=== PATIENT | female | born 1950 | race Hispanic/Latino ===

== ENCOUNTER → 2018-06-27 | Outpatient (CLI) | payer OTHER ==
[~2018-06-27] MED LIST: ALBUTEROL SULFATE 0.083% 2.5 MG/3 ML INH IH ONE; ATOR10TA69 PO; CERT400S SQ; PIND10TA2 PO; SULF500T8; VALS80TA30 PO
== END | disposition home or self-care (01) ==
LOC: RESP 10:14
PROVIDERS: ATTEND Internal Medicine Cardiovascular Disease
DX: R06.00 Dyspnea, unspecified (principal); J45.909 Unspecified asthma, uncomplicated; R06.02 Shortness of breath
CPT/HCPCS: 94060; 94727; 94729

== ENCOUNTER → 2018-07-23 | Outpatient (CLI) | payer OTHER ==
[~2018-07-23] MED LIST changes: -ALBUTEROL SULFATE 0.083% 2.5 MG/3 ML INH IH ONE; +IOHEXOL 350 MG/ML 100ML INFUS..BTL IV ONE
== END | disposition home or self-care (01) ==
LOC: RAH 09:37
PROVIDERS: ATTEND Internal Medicine Gastroenterology
DX: K57.30 Diverticulosis of large intestine without perforation or abscess without bleeding (principal); N20.0 Calculus of kidney; M51.36 Other intervertebral disc degeneration, lumbar region; Z90.49 Acquired absence of other specified parts of digestive tract; Z90.710 Acquired absence of both cervix and uterus
CPT/HCPCS: 74178; Q9967

== ENCOUNTER → 2018-08-13 | Outpatient (CLI) | payer OTHER ==
[~2018-08-13] MED LIST changes: -IOHEXOL 350 MG/ML 100ML INFUS..BTL IV ONE; +IOHEXOL-350 75 ML VIAL IV ONE
== END | disposition home or self-care (01) ==
LOC: RAH 07:48
PROVIDERS: ATTEND Internal Medicine Cardiovascular Disease
DX: I51.7 Cardiomegaly (principal); I95.1 Orthostatic hypotension; R91.8 Other nonspecific abnormal finding of lung field; Z90.49 Acquired absence of other specified parts of digestive tract
CPT/HCPCS: 71275; Q9967

== ENCOUNTER → 2021-01-07 | Outpatient (CLI) | payer MEDICARE ==
[~2021-01-07] VITALS: Ht 172.7 cm; Wt 112.5 kg
[~2021-01-07] MED LIST changes: -IOHEXOL-350 75 ML VIAL IV ONE
[2021-01-07] MEDS: REGADENOSON 0.4 MG/5 ML PF SYG IVP SCH (09:30)
== END | disposition home or self-care (01) ==
LOC: SHCH 08:43
PROVIDERS: ATTEND Internal Medicine Cardiovascular Disease
DX: R06.02 Shortness of breath (principal); R06.00 Dyspnea, unspecified; I95.1 Orthostatic hypotension; I10 Essential (primary) hypertension
CPT/HCPCS: 78452; 93017; 96374; A9500 ×2; J2785

== ENCOUNTER 2021-12-07 07:56 | Observation (INO) | payer MEDICARE ==
[2021-12-01 11:57] LABS: BASOPHILS % (AUTO) 1.2 % (0.0-5.0); EOSINOPHILS % (AUTO) 4.7 % (0.0-8.0); HEMATOCRIT 41.1 % (36-48); LYMPHOCYTES % (AUTO) 28.9 % (21.0-51.0); MEAN CORPUSCULAR HEMOGLOBIN 28.6 pg (27.0-33.0); MEAN CORPUSCULAR HGB CONC 31.6 g/dL (32.0-36.0); MEAN CORPUSCULAR VOLUME 90.5 fL (79-99); MONOCYTES % (AUTO) 7.4 % (3.0-13.0); NEUTROPHILS % (AUTO) 57.4 % (40.0-77.0); PLATELET COUNT (AUTO) 215 K/uL (130-400); RED BLOOD CELL COUNT(AUTO) 4.54 MIL/uL (4.00-5.50); RED CELL DISTRIBUTION WIDTH 13.9 % (11.0-15.5); WHITE BLOOD COUNT (AUTO) 8.4 K/uL (4.8-10.8)
[2021-12-01 12:08] LABS: INR 0.97 (0.85-1.15); PROTHROMBIN TIME 10.6 SEC (9.6-11.6)
[2021-12-01 12:09] LABS: PARTIAL THROMBOPLASTIN TIME 27.1 SEC (26.3-35.5)
[2021-12-01 12:24] LABS: CREATININE 1.1 mg/dL (0.5-1.5); POTASSIUM 4.4 mmol/L (3.5-5.1)
[2021-12-06 14:07] VITALS: BP 158/74
[~2021-12-07] VITALS: Ht 170.2 cm; Wt 111.7 kg
[2021-12-07] VITALS (24 sets, daily range): BP systolic 104–157; BP diastolic 59–86
[~2021-12-07 07:56] MED LIST changes: +ALBU18HF7 IH; +BUDE10.2 IH; -CERT400S SQ; +CYCL5TAB PO; +DEXL30CA3 PO; +FURO20TA4 PO; +LOSA100T58 PO; +MELO-108 PO; +MULT-1367 PO; +NAPR-1023 PO; +NITR0.4T50 SL; +OMEG-148 PO; +ROPI1TAB13 PO; +ROPIVICAINE 250MG+KETOROLAC 15MG+EPINEPHRINE 0.3+CLONIDINE 80 IV PRN; -SULF500T8; +SULF500T8 PO; +TRAM50TA4 PO; -VALS80TA30 PO
[2021-12-07] MEDS ORDERED: CEFAZOLIN SODIUM 1 GM VIAL ONE (08:43)
[2021-12-07] MEDS ORDERED: LACTATED RINGERS 1000ML 1,000 ML IV ONE (08:45)
[2021-12-07] MEDS: CEFAZOLIN SODIUM 2 GM VIAL IV SCH (08:55)
[2021-12-07] MEDS ORDERED: SUCCINYLCHOLINE 200MG/10ML SYR ONE (10:42)
[2021-12-07] MEDS ORDERED: ONDANSETRON 4MG INJ ONE (10:42)
[2021-12-07] MEDS ORDERED: SUCCINYLCHOLINE CHLORIDE 20 MG/ML 10 ML VIAL ONE (10:42)
[2021-12-07] MEDS ORDERED: ROCURONIUM 10MG/1ML SYR 10 MG/ML ML ONE ×2 (10:43→12:28)
[2021-12-07] MEDS ORDERED: PROPOFOL 10 MG/ML 20ML VIAL IV ONE (10:43)
[2021-12-07] MEDS ORDERED: FENTANYL CITRATE PF 50 MCG/1 ML 2ML VIAL ONE (10:43)
[2021-12-07] MEDS ORDERED: NEOSTIGMINE 5MG/5ML SYR IV ONE (10:43)
[2021-12-07] MEDS ORDERED: DEXAMETHASONE SOD PHOSPHATE 10MG/ML 1ML VIAL ONE (10:43)
[2021-12-07] MEDS ORDERED: GLYCOPYRROLATE 1 MG/5 ML SYRINGE ONE (10:43)
[2021-12-07] MEDS ORDERED: KETOROLAC 15MG/ML VIAL (15MG/ML) ONE (11:01)
[2021-12-07] MEDS ORDERED: SCOPOLAMINE HYDROBROMIDE 1 EACH ADH..PATCH TD ONE (11:02)
[2021-12-07] MEDS ORDERED: CEFAZOLIN SODIUM 2 GM VIAL IV ONE (11:45)
[2021-12-07] MEDS ORDERED: HYDROCODONE/ACETAMINOPHEN 10/325 MG TAB PO PRN (12:00)
[2021-12-07] MEDS: 0.9%NACL 1000ML 1,000 ML IV SCH ×2 (12:00→22:00)
[2021-12-07] MEDS ORDERED: ONDANSETRON 4MG INJ IVP PRN (12:00)
[2021-12-07] MEDS ORDERED: ACETAMINOPHEN 500 MG TABLET PO SCH (12:00)
[2021-12-07] MEDS ORDERED: KCL 20 MEQ ERTAB PO PRN (12:00)
[2021-12-07] MEDS: TRAMADOL HCL 50 MG TABLET PO SCH ×2 (12:00→18:32)
[2021-12-07] MEDS ORDERED: LIDOCAINE HCL-MPF 1% 2ML VIAL IV PRN (12:00)
[2021-12-07] MEDS ORDERED: POTASSIUM CHLORIDE 10% ELIXIR 20 MEQ/15 ML UDCUP PO PRN (12:00)
[2021-12-07] MEDS ORDERED: POTASSIUM CHLORIDE 20MEQ/100ML 100 ML IV PRN (12:00)
[2021-12-07] MEDS ORDERED: NITROGLYCERIN 0.4 MG SL TAB SL PRN (12:00)
[2021-12-07] MEDS ORDERED: HYDROCODONE/ACETAMINOPHEN 5/325 MG TAB PO PRN (12:00)
[2021-12-07] MEDS ORDERED: ALBUTEROL INHALER 90MCG/INH IH PRN (12:00)
[2021-12-07] MEDS ORDERED: TRANEXAMIC ACID 1000MG/10ML ONE (13:12)
[2021-12-07] MEDS ORDERED: MEPERIDINE-PF 25 MG/ML SYG ONE ×2 (14:01→14:49)
[2021-12-07] MEDS: CEFAZOLIN SODIUM 1 GM VIAL IVP SCH (18:32)
[2021-12-07] MEDS: BUDESONIDE 0.5 MG/2 ML INH IH SCH (18:55)
[2021-12-07] MEDS: ALBUTEROL 0.083% 2.5 MG/3 ML INH IH SCH ×2 (18:55→23:33)
[2021-12-07] MEDS: SULFASALAZINE 500 MG TAB.DR PO SCH (20:13)
[2021-12-07] MEDS: CYCLOBENZAPRINE HCL 10 MG TABLET PO SCH (20:13)
[2021-12-07] MEDS: ROPINIROLE HCL 1 MG TABLET PO SCH (20:14)
[2021-12-07] MEDS: NAPROXEN 500 MG TABLET PO SCH (20:14)
[2021-12-07] MEDS: FAMOTIDINE 20MG TAB PO SCH (20:14)
[2021-12-07] MEDS: PINDOLOL 5 MG TAB PO SCH (20:17)
[2021-12-07] MEDS: ACETAMINOPHEN 500 MG TABLET PO SCH (22:44)
[2021-12-08] VITALS: BP 109/48
[2021-12-08] MEDS: MORPHINE 4 MG SYG IVP PRN ×2 (00:50→00:51)
[2021-12-08] MEDS ORDERED: CEFAZOLIN SODIUM 1 GM VIAL ONE (02:08)
[2021-12-08] MEDS: CEFAZOLIN SODIUM 1 GM VIAL IVP SCH (02:09)
[2021-12-08 03:54] LABS: MEAN CORPUSCULAR HEMOGLOBIN 28.4 pg (27.0-33.0); MEAN CORPUSCULAR HGB CONC 31.6 g/dL (32.0-36.0); MEAN CORPUSCULAR VOLUME 89.9 fL (79-99); RED BLOOD CELL COUNT(AUTO) 3.45 MIL/uL (4.00-5.50); RED CELL DISTRIBUTION WIDTH 13.7 % (11.0-15.5); WHITE BLOOD COUNT (AUTO) 11.5 K/uL (4.8-10.8)
[2021-12-08 04:00] VITALS: BP 116/53
[2021-12-08 04:06] LABS: POTASSIUM 4.3 mmol/L (3.5-5.1)
[2021-12-08] MEDS: 0.9%NACL 1000ML 1,000 ML IV SCH ×2 (04:17→05:40)
[2021-12-08] MEDS: CEFAZOLIN SODIUM 2 GM VIAL IV SCH (05:00)
[2021-12-08] MEDS: ACETAMINOPHEN 500 MG TABLET PO SCH ×3 (05:31→22:48)
[2021-12-08] MEDS: TRAMADOL HCL 50 MG TABLET PO SCH ×4 (06:38→18:34)
[2021-12-08] MEDS: BUDESONIDE 0.5 MG/2 ML INH IH SCH ×2 (06:52→19:13)
[2021-12-08] MEDS: ALBUTEROL 0.083% 2.5 MG/3 ML INH IH SCH ×4 (06:52→23:52)
[2021-12-08 07:59] VITALS: BP 98/59
[2021-12-08] MEDS: POLYETHYLENE GLYCOL 3350 17 GM POWD.PACK PO SCH (08:26)
[2021-12-08] MEDS: MULTIVITAMIN TABLET PO SCH (08:28)
[2021-12-08] MEDS: FAMOTIDINE 20MG TAB PO SCH ×2 (08:28→21:04)
[2021-12-08] MEDS: ENOXAPARIN SODIUM 30 MG/0.3 ML SQ SCH (08:28)
[2021-12-08] MEDS: PINDOLOL 5 MG TAB PO SCH ×2 (08:29→21:04)
[2021-12-08] MEDS: LOSARTAN 100 MG TABLET PO SCH (08:30)
[2021-12-08] MEDS: FUROSEMIDE 20 MG TABLET PO SCH (08:30)
[2021-12-08] MEDS: DEXILANT 30 MG PO SCH (08:30)
[2021-12-08 11:22] VITALS: BP 104/48
[2021-12-08] MEDS: SULFASALAZINE 500 MG TAB.DR PO SCH ×2 (14:27→21:03)
[2021-12-08] MEDS: NAPROXEN 500 MG TABLET PO SCH ×2 (14:27→21:03)
[2021-12-08 16:09] VITALS: BP 122/52
[2021-12-08] MEDS: FERROUS GLUCONATE TABLET PO SCH (18:34)
[2021-12-08 20:00] VITALS: BP 108/49
[2021-12-08] MEDS: CYCLOBENZAPRINE HCL 10 MG TABLET PO SCH (21:03)
[2021-12-08] MEDS: ROPINIROLE HCL 1 MG TABLET PO SCH (21:04)
[2021-12-09] VITALS: BP 121/53
[2021-12-09] MEDS: MORPHINE 4 MG SYG IVP PRN (00:32)
[2021-12-09 04:00] VITALS: BP 138/56
[2021-12-09] MEDS: CEFAZOLIN SODIUM 2 GM VIAL IV SCH (05:00)
[2021-12-09] MEDS: TRAMADOL HCL 50 MG TABLET PO SCH ×3 (05:46→12:25)
[2021-12-09] MEDS: ACETAMINOPHEN 500 MG TABLET PO SCH (05:57)
[2021-12-09] MEDS: BUDESONIDE 0.5 MG/2 ML INH IH SCH (06:12)
[2021-12-09] MEDS: ALBUTEROL 0.083% 2.5 MG/3 ML INH IH SCH ×2 (06:13→11:18)
[2021-12-09 08:03] VITALS: BP 133/59
[2021-12-09] MEDS: POLYETHYLENE GLYCOL 3350 17 GM POWD.PACK PO SCH (08:11)
[2021-12-09] MEDS: MULTIVITAMIN TABLET PO SCH (08:12)
[2021-12-09] MEDS: FAMOTIDINE 20MG TAB PO SCH (08:12)
[2021-12-09] MEDS: LOSARTAN 100 MG TABLET PO SCH (08:12)
[2021-12-09] MEDS: FERROUS GLUCONATE TABLET PO SCH (08:12)
[2021-12-09] MEDS: ENOXAPARIN SODIUM 30 MG/0.3 ML SQ SCH (08:13)
[2021-12-09] MEDS: FUROSEMIDE 20 MG TABLET PO SCH (09:00)
[2021-12-09] MEDS: PINDOLOL 5 MG TAB PO SCH (09:00)
[2021-12-09] MEDS: DEXILANT 30 MG PO SCH (09:00)
[2021-12-09 10:56] VITALS: BP 140/56
[2021-12-09] MEDS: SULFASALAZINE 500 MG TAB.DR PO SCH (12:24)
[2021-12-09] MEDS: NAPROXEN 500 MG TABLET PO SCH (12:24)
[2021-12-09 15:39] VITALS: BP 142/58
[2021-12-10] MEDS ORDERED: BISACODYL 10 MG SUPP.RECT RC PRN (12:00)
== END 2021-12-09 16:52 | disposition home or self-care (01) ==
LOC: DAH 07:56 → DAHIP 07:57 → 4BH 15:32
PROVIDERS: ADMIT Orthopaedic Surgery; ATTEND Orthopaedic Surgery
DX: M16.12 Unilateral primary osteoarthritis, left hip (principal); Z20.822 Contact with and (suspected) exposure to COVID-19; I10 Essential (primary) hypertension; E66.9 Obesity, unspecified; M21.70 Unequal limb length (acquired), unspecified site; Z96.641 Presence of right artificial hip joint; Z79.899 Other long term (current) drug therapy; Z98.890 Other specified postprocedural states; Z68.38 Body mass index [BMI] 38.0-38.9, adult
CPT/HCPCS: 80048 ×2; 85025; 85610; 85730; 36415 ×2; 87635; 72170; 93005; 87641; 27130; 96374; 73503; 94640 ×9; 94664; 96376 ×2; 96372 ×2; 96375; 85027; 97161; 97039 ×4; 97116 ×4; 97530 ×3; C9803; A6260; G0378 ×45; A4663; A4606; A4649 ×4; J0690 ×4; J7120; J3010; J3490 ×2; J0330 ×2; J1100; J2710; J0171; J2704; J2405 ×2; J2175 ×2; J2795; J1885 ×2; J0735; G0168; C1776; A6255; A5120; A4215; A4223 ×2; A4213; A4222; A4221; A4216; J1650 ×3; J2270 ×2

== ENCOUNTER → 2022-03-21 | Outpatient (CLI) | payer MEDICARE ==
[~2022-03-21] MED LIST changes: -MELO-108 PO; -OMEG-148 PO; -ROPIVICAINE 250MG+KETOROLAC 15MG+EPINEPHRINE 0.3+CLONIDINE 80 IV PRN; -SULF500T8 PO
== END | disposition home or self-care (01) ==
LOC: RAH 14:25
PROVIDERS: ATTEND Internal Medicine Nephrology
DX: N20.0 Calculus of kidney (principal); R10.9 Unspecified abdominal pain
CPT/HCPCS: 74176

== ENCOUNTER 2023-09-05 08:30 | Observation (INO) | payer MEDICARE ==
[2023-08-30 12:14] LABS: BASOPHILS # (AUTO) 0.07 K/uL (0.00-0.20); BASOPHILS % (AUTO) 0.8 % (0.0-5.0); EOSINOPHILS # (AUTO) 0.25 K/uL (0.00-0.70); HEMATOCRIT 44.9 % (36-48); IMMATURE GRANULOCYTE ABSOLUTE 0.03 K/uL (0-1); LYMPHOCYTES # (AUTO) 2.4 K/uL (1.0-4.8); LYMPHOCYTES % (AUTO) 28.7 % (21.0-51.0); MEAN CORPUSCULAR HEMOGLOBIN 29.5 pg (27.0-33.0); MEAN CORPUSCULAR HGB CONC 32.1 g/dL (32.0-36.0); MONOCYTES # (AUTO) 0.6 K/uL (0.1-1.0); MONOCYTES % (AUTO) 7.6 % (3.0-13.0); NEUTROPHILS % (AUTO) 59.5 % (40.0-77.0); PLATELET COUNT (AUTO) 197 K/uL (130-400); RED BLOOD CELL COUNT(AUTO) 4.88 MIL/uL (4.00-5.50); RED CELL DISTRIBUTION WIDTH 14.1 % (11.0-15.5); WHITE BLOOD COUNT (AUTO) 8.4 K/uL (4.8-10.8)
[2023-08-30 12:29] LABS: INR <= 0.93 (0.85-1.15)
[2023-08-30 12:31] LABS: CREATININE 0.9 mg/dL (0.5-1.0); PARTIAL THROMBOPLASTIN TIME 29.1 SEC (26.3-35.5); POTASSIUM 4.4 mmol/L (3.5-5.1)
[2023-08-30 12:35] VITALS: BP 161/87; PULSE 71; RESP 16
[~2023-09-05] VITALS: Ht 172.7 cm; Wt 108.4 kg
[2023-09-05] VITALS (24 sets, daily range): BP systolic 109–142; BP diastolic 55–84; PULSE 66–96; RESP 15–20
[~2023-09-05 08:30] MED LIST changes: -ALBU18HF7 IH; -ATOR10TA69 PO; +ATOR40TA71 PO; -BUDE10.2 IH; +BUDE10.7 IH; -CYCL5TAB PO; -DEXL30CA3 PO; +DEXL30CA4 PO; +EMPA25TA PO; +ERGO500093 PO; +FAMO40TA7 PO; +FERR-72 PO; +FOLI1TAB85 PO; -LOSA100T58 PO; +LOSA100T59 PO; -MULT-1367 PO; -NAPR-1023 PO; +POTA15TA11 PO; -ROPI1TAB13 PO; +SECU150P2 SQ; +SULF500T8 PO
[2023-09-05] MEDS ORDERED: LIDOCAINE PF 100MG/5ML (2%) SYRINGE 5ML ONE (12:55)
[2023-09-05] MEDS: LACTATED RINGERS 1000ML 1,000 ML IV ONE (12:55)
[2023-09-05] MEDS ORDERED: ROCURONIUM BROMIDE 10MG/1ML 5ML VL ONE (12:56)
[2023-09-05] MEDS ORDERED: SUCCINYLCHOLINE CHLORIDE 20 MG/ML 10 ML VIAL ONE (12:56)
[2023-09-05] MEDS ORDERED: NEOSTIGMINE METHYLSULFATE 1MG/ML IV ONE (12:56)
[2023-09-05] MEDS ORDERED: GLYCOPYRROLATE 0.2 MG/ML 5 ML VIAL ONE (12:56)
[2023-09-05] MEDS ORDERED: ONDANSETRON 4MG INJ ONE (12:56)
[2023-09-05] MEDS: CEFAZOLIN SODIUM 2 GM VIAL ONE (12:56)
[2023-09-05] MEDS ORDERED: DEXAMETHASONE SOD PHOSPHATE 10MG/ML 1ML VIAL ONE (12:56)
[2023-09-05] MEDS ORDERED: PROPOFOL 10 MG/ML 20ML VIAL IV ONE (12:56)
[2023-09-05] MEDS ORDERED: MIDAZOLAM HCL 1 MG/ML 2ML VIAL ONE (12:56)
[2023-09-05] MEDS ORDERED: FENTANYL CITRATE PF 50 MCG/1 ML 2ML VIAL ONE (12:57)
[2023-09-05] MEDS ORDERED: ROPIVACAINE 0.5% 5MG/ML 30ML ONE (12:58)
[2023-09-05] MEDS ORDERED: TRANEXAMIC ACID 1000MG/10ML ONE ×2 (15:34→16:41)
[2023-09-05] MEDS: CEFAZOLIN SODIUM 2 GM VIAL IVPB ONE (15:40)
[2023-09-05] MEDS ORDERED: POTASSIUM CHLORIDE 20MEQ/100ML 100 ML IV PRN (16:00)
[2023-09-05] MEDS ORDERED: HYDROCODONE/ACETAMINOPHEN 10/325 MG TAB PO PRN (16:00)
[2023-09-05] MEDS ORDERED: MORPHINE 4 MG SYG IVP PRN (16:00)
[2023-09-05] MEDS ORDERED: HYDROCODONE/ACETAMINOPHEN 5/325 MG TAB PO PRN (16:00)
[2023-09-05] MEDS ORDERED: NITROGLYCERIN 0.4 MG SL TAB SL PRN (16:00)
[2023-09-05] MEDS ORDERED: ONDANSETRON 4MG INJ IVP PRN (16:00)
[2023-09-05] MEDS: ACETAMINOPHEN 1,000 MG/100 ML VIAL IV SCH (18:58)
[2023-09-05] MEDS: ACETAMINOPHEN 1,000 MG/100 ML VIAL IV ONE (18:58)
[2023-09-05] MEDS: IBUPROFEN 800MG + NS 250ML IV SCH (19:25)
[2023-09-05] MEDS: 0.9%NACL 1000ML 1,000 ML IV SCH (19:25)
[2023-09-05] MEDS: INSULIN HUMULIN R 100 UNIT/ML 3ML SQ SCH (20:55)
[2023-09-05] MEDS ORDERED: NON-FORMULARY MEDICATION 1 EACH (Famotidine 40 MG) PO SCH (21:00)
[2023-09-05] MEDS: SULFASALAZINE 500 MG TAB.DR PO SCH (21:00)
[2023-09-05] MEDS: ASPIRIN 81 MG EC TAB PO SCH (21:00)
[2023-09-05] MEDS: Breztri Aerosphere Inhaler IH SCH (21:00)
[2023-09-05] MEDS: FAMOTIDINE 20MG TAB PO SCH (21:00)
[2023-09-05] MEDS: PINDOLOL 10 MG PO SCH (21:00)
[2023-09-05] MEDS: CEFAZOLIN SODIUM 1 GM VIAL IVPB SCH (21:26)
[2023-09-06] VITALS: BP 120/61; PULSE 94; RESP 18
[2023-09-06 00:55] VITALS: BP 120/61; PULSE 85; RESP 20
[2023-09-06 01:55] VITALS: BP 115/57; PULSE 77; RESP 18
[2023-09-06 04:00] VITALS: BP 105/56; PULSE 88; RESP 20
[2023-09-06 05:08] LABS: HEMATOCRIT 34.1 % (36-48); MEAN CORPUSCULAR HEMOGLOBIN 30.5 pg (27.0-33.0); MEAN CORPUSCULAR HGB CONC 32.6 g/dL (32.0-36.0); MEAN CORPUSCULAR VOLUME 93.7 fL (79-99); RED BLOOD CELL COUNT(AUTO) 3.64 MIL/uL (4.00-5.50); RED CELL DISTRIBUTION WIDTH 13.9 % (11.0-15.5); WHITE BLOOD COUNT (AUTO) 9.9 K/uL (4.8-10.8)
[2023-09-06 05:21] LABS: CREATININE 0.7 mg/dL (0.5-1.0); POTASSIUM 3.3 mmol/L (3.5-5.1)
[2023-09-06] MEDS: POTASSIUM CHLORIDE 10% ELIXIR 20 MEQ/15 ML UDCUP PO PRN (05:37)
[2023-09-06 08:00] VITALS: BP 120/54; PULSE 89; RESP 16
[2023-09-06] MEDS: FUROSEMIDE 20 MG TABLET PO SCH (09:21)
[2023-09-06] MEDS: KCL 20 MEQ ERTAB PO PRN (09:21)
[2023-09-06] MEDS: LOSARTAN 100 MG TABLET PO SCH (09:22)
[2023-09-06] MEDS: EMPAGLIFLOZIN 25MG TABLET PO SCH (09:22)
[2023-09-06] MEDS: POLYETHYLENE GLYCOL 3350 17 GM POWD.PACK PO SCH (09:22)
[2023-09-06] MEDS: PANTOPRAZOLE 40 MG TAB DR PO SCH (09:22)
[2023-09-06 11:41] VITALS: BP 125/61; PULSE 78; RESP 16
[2023-09-08] MEDS ORDERED: BISACODYL 10 MG SUPP.RECT RC PRN (16:00)
== END 2023-09-06 15:30 | disposition home or self-care (01) ==
LOC: DAH 08:30 → DAHIP 08:31 → DAH 08:31 → 4BH 19:10
PROVIDERS: ADMIT Orthopaedic Surgery; ATTEND Orthopaedic Surgery
DX: M75.101 Unspecified rotator cuff tear or rupture of right shoulder, not specified as traumatic (principal); I10 Essential (primary) hypertension; E78.5 Hyperlipidemia, unspecified; E66.9 Obesity, unspecified; J45.909 Unspecified asthma, uncomplicated; J02.9 Acute pharyngitis, unspecified; M45.9 Ankylosing spondylitis of unspecified sites in spine; I73.9 Peripheral vascular disease, unspecified; R49.9 Unspecified voice and resonance disorder; K21.9 Gastro-esophageal reflux disease without esophagitis; G47.33 Obstructive sleep apnea (adult) (pediatric); H61.20 Impacted cerumen, unspecified ear; Z79.899 Other long term (current) drug therapy; Z98.890 Other specified postprocedural states
CPT/HCPCS: 80048 ×2; 85025; 85610; 85730; 36415 ×2; 87641; 64415; 23472; 96365; 96366 ×2; 96375; 96367; 82948 ×3; 88304; 73030; 96376; 85027; 97161; 97116; 97530; A6260; G0378 ×19; A4663; J7030; A4565; A4649 ×4; C1776; J7120; J3010; J0690 ×4; J3490 ×6; J1100; J0330; J2001; J2250; J2704; J2405; J2710; J2795; J1741 ×3; A6204; A6223; C1713; A5120; A4215; A4223; A4222; A4221